=== PATIENT | male | born 1950 | race Caucasian/White ===

== ENCOUNTER → 2024-11-04 | Outpatient (CLI) | payer SELFPAY, OTHER ==
--- NOTE | 2024-11-04 08:34 | CT_ITS ---
PROCEDURE: SINUS/FACIAL BONE REASON FOR EXAM: ANOSMIA AND AGEUSIA FOLLOWING SUBARACHNOID HEMORRH TECHNIQUE: CT of the paranasal sinuses without contrast. Coronal and Sagittal reconstruction series were provided. One or more dose reduction techniques were used (e.g., Automated exposure control, adjustment of the mA and/or kV according to patient size, use of iterative reconstruction technique). COMPARISON: None. FINDINGS: The superficial soft tissues are unremarkable. The globes are intact. Prior left frontotemporal craniotomy with right MCA aneurysm clipping. The paranasal sinuses are clear. No significant midline shift. The ostiomeatal complexes are patent. No evidence of acute fracture or dislocation. CT/Sinus/Facial Bone IMPRESSION: No acute facial bone abnormality. Details above. Reading Location: [id number]
--- NOTE | 2024-11-04 08:34 | CT_ITS ---
PROCEDURE: BRAIN/HEAD WITHOUT CONTRAST 11/04/2024 REASON FOR EXAM: FOLLOW-UP CHRONIC SUBDURAL HEMATOMA TECHNIQUE: Head CT without intravenous contrast. Coronal and Sagittal reconstruction series were provided. One or more dose reduction techniques were used (e.g., Automated exposure control, adjustment of the mA and/or kV according to patient size, use of iterative reconstruction technique. RADIATION DOSE SUMMARY: CTDlvol: 78.2 mGy DLP: 1643.85 mGycm COMPARISON: No prior exams are available for comparison. FINDINGS: There is an aneurysm clip at the right ICA/MCA trifurcation region. There is no evidence of acute intracranial hemorrhage or infarction. There is no significant left subdural fluid collection or midline shift. There are no abnormal intracranial masses or mass effects. The ventricular system and basilar cisterns are unremarkable. 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 There is a left frontotemporal craniotomy. The skull base and calvarium are otherwise unremarkable. The paranasal sinuses and mastoid air cells are unremarkable. The intraorbital contents are normal. The visualized extracranial soft tissues are normal. CT/Brain/Head without Contrast IMPRESSION: One. No evidence of extra-axial fluid collections or midline shift. Two. Status post left frontotemporal craniotomy and right MCA/MCA aneurysm cli pping. Three. No evidence of acute intracranial pathology. Four. Previous examinations are not available for comparison. Reading Location: [id number]
--- OUTSIDE RECORDS SUMMARY | 2024-11-04 09:07 | XMS RPT_ITS | CCD ---
Author Organization [facility] Care Team Providers Care Repair Department Supervisor Name Role Phone BRANDIE SANABRIA Consulting Unavailable DARLINE HILL MD Attending Unavailable DARLINE HILL MD Primary Care Unavailable DARLINE HILL MD Admitting Unavailable PROVIDER, UNKNOWN Consulting Unavailable Howard CARRENO, Dr. Jones Attending Provider [phone] Darline Hill Attending Unavailable Darline Hill Referring Unavailable Darline Hill Attending Unavailable Saw HILLMAN, Melissa Flores Primary Care Unavailabl e Medications Current Medications Medication Drug Class(es) Dates Sig (Normalized) Sig (Original) aspirin 81 mg delayed release oral tablet (1 source) Platelet Aggregation Inhibitor, Nonsteroidal Anti-inflammatory Drug Start: 11-02-2020 take 1 tablet by mouth once daily Aspirin (Adult Aspirin Regimen) 81 mg tablet,delayed release (DR/EC) Active 81 mg PO DAILY November 02, 2020 12:00am atorvastatin 20 mg oral tablet (1 source) HMG-CoA Reductase Inhibitor Start: 11-02-2020 take 1 tablet by mouth once daily Atorvastatin 20 mg tablet Active 20 mg PO DAILY November 02, 2020 12:00am lisinopril 20 mg oral tablet (1 source) Angiotensin Converting Enzyme Inhibitor Start: 11-02-2020 take 1 tablet by mouth once daily Lisinopril 20 mg tablet Active 20 mg PO DAILY November 02, 2020 12:00am Multivitamin tablet (1 source) Start: 11-02-2020 Multivitamin tablet Active 1 {tbl} PO DAILY November 02, 2020 12:00am Completed/Discontinued Medications Medication Drug Class(es) Dates Sig (Normalized) Sig (Original) zolpidem tartrate 10 mg oral tablet (2 sources) gamma-Aminobutyri c Acid-ergic Agonist Start: 11-02-2020 End: 11-02-2020 take 1 tablet by mouth at bedtime Zolpidem 10 mg tablet Discontinued 10 mg PO AT BEDTIME November 02, 2020 12:00am November 02, 2020 8:57am Start: 11-02-2020 End: 11-02-2020 take 1 tablet by mouth at bedtime as needed Zolpidem 5 mg tablet Discontinued 5 mg PO AT BEDTIME as needed November 02, 2020 12:00am November 02, 2020 8:57am Problems Problem Classification Problem Date Documented Da te Episodic/Chronic Acute cerebrovascular disease (5 sources) Hematoma of subdural space of neuraxis; Translations: [Nontraumatic chronic subdural hemorrhage] Onset: 10-16-2024 11-02-2020 Chronic Other circulatory disease (2 sources) History of subarachnoid hemorrhage; Translations: [Personal history of other diseases of the circulatory system] 03-20-2022 Episodic Other circulatory disease (2 sources) Personal history of other diseases of the circulatory system; Translations: [Personal history of other diseases of the circulatory system] Onset: 10-16-2024 Episodic Other nervous system disorders (2 sources) Loss of taste; Translations: [Parageusia] 03-20-2022 Episodic Other nervous system disorders (2 sources) Loss of sense of smell; Translations: [Anosmia] 03-20-2022 Episodic Other nervous system disorders (2 sources) Parageusia; Translations: [Parageusia] Onset: 10-16-2024 Episodic Other nervous system disorders (1 source) Anosmia; Translations: [Anosmia] Onset: 10-16-2024 Episodic Other upper respiratory disease (1 source) Encounter for attention to tracheostomy; Translations: [Encounter for attention to tracheostomy] Onset: 11-03-2024 Chronic Residual codes; unclassified (1 source) History of surgery for cerebral aneurysm; Translations: [Other specified postprocedural states] 10-17-2021 Episodic Residual codes; unclassified (2 sources) Other specified postprocedural states; Translations: [Other specified postprocedural states] Onset: 10-16-2024 Episodic Results Test Name Value Interpretation Reference Range Alexa barrera Neurology Visit Reporton Neurology Visit Report [facility] [address] [place] [address], [address] [place] [address] OFFICE VISIT Date of Service: 10/16/24 MR#: [id number] Acct: [id number] Name: DANELLE REMY Rep #: [id number] : 1950 Provider: Dr. Darline garcia MD Age/Sex: 74/M Location: [facility] Status: Signed HPI HPI Chief Complaint: F/U aneurysmal subarachnoid hemorrhage Details: Interim History: Danelle returns for follow-up visit. He was last seen in the office in March 2022. He has a history of hyperlipidemia, hypertension, myocardial infarction, coronary artery disease status post CABG in August 2019. In July 2020, he experienced loss of consciousness followed by amnesia lasting 2 days and transient dysarthria. 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 He underwent aneurysm clipping in July 2020 (operative note from 07/27/2020 indicates that a single straight Yasargil titanium MRI compatible clip was used) and was stable postoperatively. He did not have issues with vasospasms postoperatively. He was treated with nimodipine. He had a transient headache postoperatively. He, however, generally does not have headaches. He denied having gait imbalance. At his last assessment in 2021, he denied having numbness, weakness, vision change, or speech difficulty. He did notice some transient visual impairment of the left eye postoperatively though this subsequently resolved. He has had persistent anosmia and ageusia since his aneurysm surgery. He denied having nasal discharge. A head CT performed in the weeks following his aneurysm clipping revealed a subdural hematoma and a subsequent head CT performed in October 2020 revealed persistence of a chronic left subdural hematoma without midline shift. Surgical intervention for his subdural hematoma was not felt to be warranted. He had slight memory difficulty following his cerebral aneurysm rupture however he remains independent in his daily activities and felt that his memory improved and he presently denies having any significant memory difficulty. He has resumed his usual daily activities. He had a fall in December 2020 and lacerated the left temporal head region. A follow-up head CT performed on 01/31/2021 revealed a chronic left frontoparietal subdural hematoma that was diminished in size compared to the prior exam performed on 10/13/2020. There was minimal stranding within the hematoma suggestive of subacute versus acute superimposed hemorrhage. A surgical clip was present superior to the sella. There was no evidence of acute parenchymal abnormality. There was no evidence of midline shift. A left frontal parietal craniotomy was noted. He followed up with his neurosurgeon in June 2021 and the patient stated that he was felt to be stable and no further neurosurgical follow-up was needed. His head CT in March 2022 revealed that the previously identified chronic left frontal parietal subdural hematoma had resolved and there was no evidence of acute intracranial abnormality. He however developed an infection at the region of scalp laceration and per his description underwent surgical scalp debridement of this in 2022. He has been neurologically stable since that time. His Mini-Mental status exam score was 29/30 on 11/02/2020. Physical Exam: Neuro: The patient is awake and alert and responds appropriately; speech is fluent; he is oriented to day of the week; he is able to subtract 7 from 100; he is able to spell world backwards Neck: No bruits Heart: Regular rate and rhythm Supplemental Info Head CT (07/26/2020): Acute diffuse subarachnoid hemorrhage. Correlate for ruptured aneurysm. Head/neck CTA (07/26/2020): Anterior communicating artery aneurysm with stigmata of recent rupture. Mildly diminished flow in left middle cerebral arterial M2 and M3 vessels. This may be reconstruction artifact due to adjacent large volume subarachnoid hemorrhage versus manifestations of vasospasm. Clinical correlation. Minimal cervical carotid atherosclerosis without cervical hemodynamically significant carotid stenosis. The left vertebral artery is dominant and is normal. The right vertebral artery is diminutive in caliber but is patent. EKG (07/26/2020): Sinus rhythm; borderline prolonged NJ interval; incomplete left bundle branch block; left ventricular hypertrophy cerebral angiogram (07/26/2020): Saccular aneurysm of the left A1-A2 junction anterior cerebral artery medially directed measuring up to 1.1 cm. A branch of the left anterior cerebral artery arises from the posterior body of the aneurysm and therefore is not a candidate for endovascular coil embolization. BMP, magnesium, CBC, lipid profile (07/26/2020): Glucose 176, WBC 14.4 Cardiac echo (07/26/2020): Left ventricular global systolic function is mildly reduced (more content not included)... Normal [facility] Vital Signs Date Time Vital Sign Value Performing Clinician Faci lity 10-16-2024 08:38-0400 Body height 165.[address] Darline Hill MD Work Phone: [facility] 10-16-2024 08:38-0400 Body mass index (BMI) [Ratio] 27.6 kg/m2 Dr. Darline Hill MD Work Phone: [facility] 10-16-2024 08:38-0400 Body temperature 98.6 [degF] Dr. Darline Hill MD Work Phone: [facility] 10-16-2024 08:38-0400 Body weight 75.[address] Darline Hill MD Work Phone: [facility] 10-16-2024 08:38-0400 Diastolic blood pressure 78 mm[Hg] Dr. Darline Hill MD Work Phone: [facility] 10-16-2024 08:38-0400 Heart rate 63 /min Dr. Darline Hill MD Work Phone: [facility] 10-16-2024 08:38-0400 Respiratory rate 15 /min Dr. Darline Hill MD Work Phone: [facility] 10-16-2024 08:38-0400 SaO2% (BldA) [Mass fraction] 97 % Dr. Darline Hill MD Work Phone: [facility] 10-16-2024 08:38-0400 Systolic blood pressure 155 mm[Hg] Dr. Darline Hill MD Work Phone: [facility] Encounters Encounter Date Encounter Type Care Provider Facility Start: 11-04-2024 ambulatory Darline Hill Facilit y:[facility] Start: 10-16-2024 End: 10-16-[address] Darline Hill MD -[facility] Work Phone: Start: 10-16-2024 End: 10-16-2024 ambulatory Darline Hill [facility] Work Phone: Start: 06-25-2023 ambulatory BRANDIE W ELLY [facility] Plan of Treatment Date Care Activity Detail Author CT Facial bones [facility] CT Unspecified body region WO contrast [facility] Payers Date Payer Category Payer Self-pay 1950 Unknown [id number] [id number] Medicare [id number] Unknown [id number] Unknown [id number] Social History Date Type Detail Facility Start: 03-26-2024 Tobacco smoking stat [facility] Never smoked tobacco (finding) [facility] Start: 1950 Sex Assigned At Male [facility] Evaluation note Note Date & Type Note Facility Evaluation note Diagnosis Onset Date Resolution History of subarachnoid hemorrhage acute October 16, 2024 8 :37am Ageusia chronic October 16, 2024 8:37am Anosmia chronic October 16, 2024 8:37am Chronic subdural hematoma chronic October 16, 2024 8 :37am [facility] Work Phone: Reason for referral (narrative) Note Date & Type Note Facility Reason for referral (narrative) No reason for referral information available [facility] Work Phone: Summary Purpose Family History No Family History Records Found Relationship Condition Age at Onset Recorded Date/T lita father Cerebrovascular accident (CVA) Unknown Advance Directives No Advanced Directives Records FoundNo Advanced Directives Records Found Chief Complaint and Reason for Visit Chief Complaint Admit Date HX OF BRAIN ANEURYSM October 16, 2024 8:37 am Reason for Visit Admit Date History of subarachnoid hemorrhage October 022024 8:37am Ageusia October 16, 2024 8:37a m Anosmia October 16, 2024 8:37a m Chronic subdural hematoma October 16, 2024 8:37am Additional Source Comments (unrecognized sect ion and content) No Status Records FoundNo Status Records Found INFORMATION SOURCE (unrecogn ized section and content) DATE CREATED AUTHOR 06/25/2023 Dan[facility] DATE CREATED AUTHOR AUTHOR'S ORGANBRADLEY ATION 11/03/2024 [facility] Care Teams (unrecognized sec tion and content) Team Status: Inactive Member Role Status Dates Dr. Darline Hill MD Attending Provider Active Start: October 16, 2024 End: October 16, 2024 Goals (unrecognized section and content) Goals may be documented in a n alternate section FOR RECORDS PERTAINING TO PATIENTS WHO ARE OR HAVE BEEN ENROLLED IN A CHEMICAL DEPENDENCY/SUBSTANCEABUSE PROGRAM, SOME INFORMATION MAY BE OMITTED. This clinical summary was aggregated from multiple sources. Caution should be exercised in using it in the provision of clinical care. This summary normalizes information from multiple sources, and as a consequence, information in this document may materially change the coding, format and clinical context of patient data. In addition, data may be omitted in some cases. CLINICAL DECISIONS SHOULD BE BASED ON THE PRIMARY CLINICAL RECORDS. [facility] [employer] [facility]. provides no warranty or guarantee of the accuracy or completeness of information in this document.
== END | disposition home or self-care (01) ==
LOC: CT 08:27
PROVIDERS: PCP Nurse Practitioner Family; Referring Provider Psychiatry & Neurology Neurology; Visit Provider Psychiatry & Neurology Neurology
DX: R43.0 Anosmia (principal); I62.03 Nontraumatic chronic subdural hemorrhage; R43.2 Parageusia; Z86.79 Personal history of other diseases of the circulatory system; Z98.890 Other specified postprocedural states
CPT/HCPCS: 70450; 70486